=== PATIENT | female | born 1960 | race African-American/Black ===

== ENCOUNTER 2018-03-12 21:42 | Inpatient (IN) | payer OTHER ==
[~2018-03-12] VITALS: Ht 167.6 cm; Wt 64.3 kg
[2018-03-12] MEDS ORDERED: PLEASE ENTER ALLERGIES MC SCH (22:00)
[2018-03-12] MEDS ORDERED: SODIUM CHLORIDE FLUSH 10ML SYR IVF ONE (22:00)
[2018-03-12] MEDS ORDERED: PLEASE ENTER HEIGHT AND WEIGHT MC SCH (22:00)
[2018-03-12] MEDS ORDERED: NITROGLYCERIN OINT 2%, 1GM TP ONE (22:00)
[2018-03-12 23:15] LABS: ALANINE AMINOTRANSFERASE 29 U/L (12-78); ALBUMIN 3.5 g/dL (3.4-5.0); ANION GAP 10 mmol/L (5-15); CALCIUM 8.9 mg/dL (8.5-10.1); CHLORIDE 109 mmol/L (98-107); CREATININE 1.07 mg/dL (0.55-1.02); MEAN CORPUSCULAR HEMOGLOBIN 23.9 pg (27.0-34.8); MEAN CORPUSCULAR HGB CONC 32.1 g/dL (32.4-35.8); MEAN CORPUSCULAR VOLUME 74.4 fL (80-100); MEAN PLATELET VOLUME 8.8 fL (7.4-10.4); PLATELET COUNT 314 x10^3/uL (130-400); RED BLOOD COUNT 4.84 x10^6/uL (3.82-5.3); RED CELL DISTRIBUTION WIDTH 20.1 % (9.6-15.2)
[2018-03-12 23:19] LABS: ALKALINE PHOSPHATASE 102 U/L (45-117); BILIRUBIN,TOTAL 0.4 mg/dL (0.2-1.0); TOTAL PROTEIN 7.7 g/dL (6.4-8.2); TROPONIN I 0.037 ng/mL (0.000-0.045)
[2018-03-12] MEDS ORDERED: FUROSEMIDE 20 MG/2 ML IV ONE (23:30)
[2018-03-12] MEDS ORDERED: FUROSEMIDE 40 MG/4 ML IV ONE (23:30)
[2018-03-12] MEDS ORDERED: FUROSEMIDE 40 MG/4 ML ONE (23:43)
[2018-03-12] MEDS ORDERED: CLON0.2T PO (23:47)
[2018-03-12] MEDS ORDERED: AMLO5TAB2 PO (23:49)
[2018-03-12] MEDS ORDERED: SPIR25TA3 PO (23:49)
[2018-03-12] MEDS ORDERED: METO50TA82 PO (23:50)
[2018-03-12] MEDS ORDERED: potassium (23:50)
[2018-03-12 23:54] LABS: BASOPHILS # (AUTO) 0.03 x10^3/uL (0-0.1); BASOPHILS % (AUTO) 1 % (0-1); EOSINOPHILS # (AUTO) 0.16 x10^3/uL (0-0.4); EOSINOPHILS % (AUTO) 3 % (1-7); LYMPHOCYTES # (AUTO) 2.33 x10^3/uL (1-3.4); LYMPHOCYTES % (AUTO) 49 % (22-44); MD SCAN; MONOCYTES # (AUTO) 0.37 x10^3/uL (0.2-0.8); MONOCYTES % (AUTO) 8 % (2-9); NEUTROPHILS # (AUTO) 1.91 x10^3/uL (1.8-6.8); NEUTROPHILS % (AUTO) 40 % (42-75)
[2018-03-12] MEDS ORDERED: hydrALAzine 20 MG/ML, 1ML ONE (23:57)
[2018-03-13] MEDS ORDERED: ONDANSETRON 2MG/ML, 2ML IVPush PRN
[2018-03-13] MEDS ORDERED: AMLODIPINE 5 MG TABLET PO SCH
[2018-03-13] MEDS ORDERED: morphine SULFATE 10 MG/ML, 1ML IVPush PRN
[2018-03-13] MEDS ORDERED: hydrALAzine 20 MG/ML, 1ML IV PRN
[2018-03-13] MEDS ORDERED: DOCUSATE 100 MG CAPSULE PO PRN
[2018-03-13] MEDS ORDERED: ENALAPRILAT 1.25 MG/ML, 2ML IV PRN
[2018-03-13] MEDS ORDERED: NICOTINE 14MG/24 HR PATCH.TD24 TD SCH
[2018-03-13] MEDS ORDERED: HEPARIN 5,000 UNITS/ML, 1ML SQ SCH
[2018-03-13] MEDS ORDERED: POLYETHYLENE GLYCOL 17 GM PACKET PO PRN
[2018-03-13] MEDS ORDERED: LABETALOL 5MG/ML, 20ML IVPush PRN
[2018-03-13 00:37] VITALS: BP 163/76
[2018-03-13 02:00] VITALS: BP 126/81
[2018-03-13 05:34] LABS: ANION GAP 9 mmol/L (5-15); CALCIUM 9.6 mg/dL (8.5-10.1); CHLORIDE 108 mmol/L (98-107); CHOLESTEROL, TOTAL 180 mg/dL (140-239); CREATININE 1.13 mg/dL (0.55-1.02); TRIGLYCERIDES 71 mg/dL (50-200); VLDL CHOLESTEROL 14 mg/dL (0-25)
[2018-03-13 05:38] LABS: TROPONIN I 0.018 ng/mL (0.000-0.045)
[2018-03-13 05:39] LABS: CHOL/HDL RATIO 2.5; HDL CHOL % 40 % (28-40); HDL CHOLESTEROL (DIRECT) 72 mg/dL (40-60); LDL CHOLESTEROL,CALCULATED 94 mg/dL (54-169); LDL/HDL RATIO 1.3 (0.5-3.0)
[2018-03-13] MEDS ORDERED: INSULIN LISPRO 100 UNITS/ML, PEN SQ-INSULIN SCH (07:00)
[2018-03-13] MEDS ORDERED: FUROSEMIDE 40 MG/4 ML IV SCH (07:30)
[2018-03-13] MEDS ORDERED: SODIUM CHLORIDE FLUSH 10ML SYR IVF SCH (09:00)
[2018-03-13] MEDS ORDERED: SENNA/DOCUSATE TABLET PO SCH (09:00)
[2018-03-13] MEDS ORDERED: METOPROLOL TARTRATE 50 MG TABLET PO SCH (09:00)
[2018-03-13] MEDS ORDERED: SPIRONOLACTONE 25 MG TABLET PO SCH (09:00)
== END 2018-03-13 09:42 | disposition left against medical advice (07) | DRG 292 ==
LOC: SUATTDRO 23:37 → ED 23:59 → EDIP 03-13 → 5SO 03-13 00:28
PROVIDERS: ADMIT Family Medicine; ATTEND Family Medicine
DX: I50.23 Acute on chronic systolic (congestive) heart failure (principal); N18.4 Chronic kidney disease, stage 4 (severe); E11.21 Type 2 diabetes mellitus with diabetic nephropathy; D68.69 Other thrombophilia; I31.3 Pericardial effusion (noninflammatory); E11.22 Type 2 diabetes mellitus with diabetic chronic kidney disease; Z79.01 Long term (current) use of anticoagulants; F17.200 Nicotine dependence, unspecified, uncomplicated; I25.10 Atherosclerotic heart disease of native coronary artery without angina pectoris; I25.2 Old myocardial infarction; I44.7 Left bundle-branch block, unspecified; R09.02 Hypoxemia; Z82.49 Family history of ischemic heart disease and other diseases of the circulatory system; Z83.3 Family history of diabetes mellitus; Z86.711 Personal history of pulmonary embolism; Z86.718 Personal history of other venous thrombosis and embolism; Z86.73 Personal history of transient ischemic attack (TIA), and cerebral infarction without residual deficits; Z91.14 Patient's other noncompliance with medication regimen
CPT/HCPCS: 36415; 71045; 80048; 80053; 80061; 83735; 83880; 84484; 85025; 93005; 96374; 96375; J1644; J1940; J0360

== ENCOUNTER 2018-03-15 01:08 | Emergency (ER) | payer SELFPAY ==
[~2018-03-15] VITALS: Ht 167.6 cm; Wt 66.4 kg
[~2018-03-15 01:08] MED LIST: AMLO5TAB2 PO; CLON0.2T PO; METO50TA82 PO; SPIR25TA3 PO; potassium
[2018-03-15 01:50] VITALS: BP 186/130
[2018-03-15] MEDS ORDERED: SODIUM CHLORIDE FLUSH 10ML SYR IVF ONE (02:00)
== END 2018-03-15 01:55 | disposition left against medical advice (07) ==
LOC: ED 01:49
DX: I50.9 Heart failure, unspecified (principal); F17.210 Nicotine dependence, cigarettes, uncomplicated; R11.0 Nausea
CPT/HCPCS: 93005; 99283

== ENCOUNTER 2020-08-13 14:47 | Emergency (ER) | payer SELFPAY ==
[~2020-08-13 14:47] MED LIST changes: +AMLO-150 PO; -AMLO5TAB2 PO; -SPIR25TA3 PO; +SPIR25TA5 PO
[2020-08-13 15:36] LABS: BASOPHILS % (AUTO) 1 % (0-1); EOSINOPHILS % (AUTO) 1 % (1-7); LYMPHOCYTES % (AUTO) 30 % (22-44); MEAN CORPUSCULAR HEMOGLOBIN 23.7 pg (27.0-34.8); MEAN CORPUSCULAR HGB CONC 31.2 g/dL (32.4-35.8); MEAN PLATELET VOLUME 7.7 fL (7.4-10.4); MONOCYTES % (AUTO) 8 % (2-9); NEUTROPHILS % (AUTO) 60 % (42-75); PLATELET COUNT 268 x10^3/uL (130-400); RED BLOOD COUNT 4.42 x10^6/uL (3.82-5.3); RED CELL DISTRIBUTION WIDTH 19.6 % (9.6-15.2)
[2020-08-13 15:40] LABS: MD NO
[2020-08-13 15:47] LABS: ALANINE AMINOTRANSFERASE 36 U/L (12-78); ALBUMIN 3.7 g/dL (3.4-5.0); ANION GAP 6 mmol/L (5-15); CALCIUM 9.2 mg/dL (8.5-10.1); CHLORIDE 105 mmol/L (98-107); CREATININE 1.15 mg/dL (0.55-1.02)
[2020-08-13 15:51] LABS: ALKALINE PHOSPHATASE 151 U/L (45-117); BILIRUBIN,TOTAL 0.4 mg/dL (0.2-1.0); TOTAL PROTEIN 8.2 g/dL (6.4-8.2); TROPONIN I < 0.015 ng/mL (0.000-0.045)
[2020-08-13 16:03] LABS: INTERNATIONAL NORMALIZED RATIO 1.05 (0.93-1.1); PROTHROMBIN TIME 11.1 Seconds (9.6-11.5)
[2020-08-13 16:04] VITALS: BP 146/99
--- NOTE | 2020-08-13 16:05 | NUR ---
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 PT PLACED BACK ON CONTINUOUS SPO2 AND CARDIAC MONITORING AFTER AMBULATING TO THE RESTROOM. PT VERBALIZED CONCERNS OVER NURSING CARE. CONCERNS DISCUSSED AND ADDRESSED. PT HAS CALLLIGHT WITHIN REACH, INSTRUCTED ON USE. VERBALIZED UNDERSTANDING.
[2020-08-13] MEDS ORDERED: FUROSEMIDE 40 MG/4 ML ONE (17:07)
--- NOTE | 2020-08-13 17:19 | NUR ---
ATTEMPTED TO ADMIN SCHEDULED LASIX DOSE. PT REFUSED DOSE, GOT DRESSED BEGAN WALKING DOWN THE OLIVER. STATES SHE IS LEAVING, UNABLE TO TALK PT TO RETURN TO . PT AMBULATES WITH STEADY GAIT, WILL NOTIFY JORGE.
[2020-08-13] MEDS ORDERED: FUROSEMIDE 20 MG/2 ML IV ONE (17:30)
== END 2020-08-13 17:31 | disposition left against medical advice (07) ==
LOC: EDBD 14:47 → ED 17:20
DX: I50.1 Left ventricular failure, unspecified (principal); I25.2 Old myocardial infarction; I11.0 Hypertensive heart disease with heart failure; R07.89 Other chest pain; R06.00 Dyspnea, unspecified; R06.02 Shortness of breath
CPT/HCPCS: 36415; 71045; 80053; 83880; 84484; 85025; 85610; 85730; 93005; 99285